=== PATIENT | male | born 1980 | race Hispanic/Latino ===

== ENCOUNTER 2023-01-03 11:05 | Day surgery (SDC) | payer BC ==
[2023-01-02 10:01] VITALS: BMI 28.5
[2023-01-03] MEDS ORDERED: fentaNYL 50 mcg/mL 1 mL Vial ONE (11:51)
[2023-01-03] MEDS ORDERED: Ondansetron PF 4 MG/2 ML Vial ONE (13:28)
[2023-01-03] MEDS ORDERED: Dexamethasone 20 MG/5 ML VIAL ONE (13:28)
[2023-01-03] MEDS ORDERED: PROPOFOL 200 MG/20 ML VIAL ONE (13:28)
[2023-01-03] MEDS ORDERED: Lidocaine 1% PF 5 ML VIAL ONE (13:28)
== END 2023-01-03 16:05 | disposition home or self-care (01) ==
LOC: MRI 11:05
PROVIDERS: ATTEND Nurse Practitioner Family
DX: M51.16 Intervertebral disc disorders with radiculopathy, lumbar region (principal); M50.30 Other cervical disc degeneration, unspecified cervical region; I10 Essential (primary) hypertension; E78.5 Hyperlipidemia, unspecified; K21.9 Gastro-esophageal reflux disease without esophagitis; Z79.899 Other long term (current) drug therapy
CPT/HCPCS: 72141; 72148; J1100; J2405; J2704; J3010

== ENCOUNTER 2025-04-28 11:47 | Outpatient (CLI) | payer BC | END 2025-04-28 11:48 | disposition home or self-care (01) | LOC: SCSRAD 11:47 | PROVIDERS: ATTEND Family Medicine | DX: R50.9 Fever, unspecified (principal); R42 Dizziness and giddiness; H53.8 Other visual disturbances | CPT/HCPCS: 71046 ==